=== PATIENT | male | born 1990 | race Caucasian/White ===

== ENCOUNTER 2022-01-04 18:51 | Emergency (ER) | payer SELFPAY ==
[~2022-01-04] VITALS: Ht 177.8 cm; Wt 77.0 kg
--- NOTE | 2022-01-04 19:29 | ED Head Injury ---
General Chief Complaint: Foreign Body Stated Complaint: FOREIGN BODY IN HEAD Nursing Triage Note: Pt reports he was fishing and got a fish hook stuck in the left side of his head. Pt is wearing a hat and was unable to get hook out. No bleeding noted. Source: patient Exam Limitations: no limitations History of Present Illness Date Seen by Provider: Jan 04, 2022 Time Seen by Provider: 19:00 Initial Comments Patient is a 31-year-old male with fishhook embedded into his baseball cap. Patient was casting when he was impaled by a 3 prong fishing hook. No attempts were made to remove the fishing hook prior to ED arrival. There is no bleeding noted. Tetanus is up-to-date. Allergies and Home Medications Allergies Coded Allergies: Penicillins (Verified Allergy, Unknown, 01/04/22) Patient Home Medication List Home Medication List Reviewed: Yes Review of Systems Review of Systems Constitutional: see HPI Eyes: See HPI Ears, Nose, Mouth, Throat: see HPI Respiratory: see HPI Cardiovascular: see HPI Genitourinary: see HPI Musculoskeletal: see HPI Skin: see HPI Psychiatric/Neurological: See HPI Endocrine: See HPI Hematologic/Lymphatic: See HPI All Other Systems Reviewed Negative Unless Noted: Yes Past Lnkskqo-Qrofuc-Cvuxeg Hx Patient Social History Tobacco Use?: Yes Tobacco type used: Cigarettes Smoking Status: Current Everyday Smoker Use of E-Cig and/or Vaping dev: No Substance use?: No Alcohol Use?: No Pt feels they are or have been: No Immunizations Up To Date Influenza Vaccine Up-to-Date: No; Not Current First/Initial COVID19 Vaccinat: denies Physical Exam Vital Signs Vital Signs - First Documented 01/04/22 18:55 Temp 36.8 Pulse 71 Resp 20 B/P (MAP) 139/78 (98) Pulse Ox 96 O2 Delivery Room Air Capillary Refill : Less Than 3 Seconds Height, Weight, BMI Height: '" Weight: lbs. oz. kg; 24.00 BMI Method: General Appearance: no apparent distress HEENT: other (3-prong fishing hook with single prong embedded in the patient's hair in pateint's braid an scalp) Progress/Results/Core Measures Results/Orders My Orders Orders - JASMINE MORLEY DO Sulfamethoxazole/Trimet Ds Tab (Bactrim (01/04/22 19:30) Vital Signs/I&O 01/04/22 18:55 Temp 36.8 Pulse 71 Resp 20 B/P (MAP) 139/78 (98) Pulse Ox 96 O2 Delivery Room Air Blood Pressure Mean: 98 Departure Communication (Admissions) Fishing hook was cut to facilitate removal. After the fishing hook was cut, the remaining prong fell out of his hair. Antibiotics were given. Impression Primary Impression: Fishing hook foreign body Disposition: HOME, SELF-CARE Condition: Stable Departure-Patient Inst. Decision time for Depature: 19:32 Referrals: NO,LOCAL PHYSICIAN (PCP/Family) Primary Care Physician Patient Instructions: Foreign Body in Skin Add. Discharge Instructions: Please fill antibiotics and take as directed. Return to the ED if signs of infection All discharge instructions reviewed with patient and/or family. Voiced und erstanding. Scripts Sulfamethoxazole/Trimethoprim (Bactrim Ds Tablet) 800 Mg-160 Mg Tablet 1 EACH PO BID, #10 TAB Prov: JASMINE MORLEY DO 01/04/22 JASMINE MORLEY DO Jan 04, 2022 19:29
[2022-01-04] MEDS ORDERED: TRIM/SULFAMETH 160/800 (SEPTRA DS) TAB PO ONE (19:30)
[2022-01-04] MEDS ORDERED: SULF-221 PO (19:33)
[2022-01-04 19:36] VITALS: BP 139/78
== END 2022-01-04 19:36 | disposition home or self-care (01) ==
LOC: ER FS 18:53
DX: S00.05XA Superficial foreign body of scalp, initial encounter (principal); F17.210 Nicotine dependence, cigarettes, uncomplicated; Z28.310 Unvaccinated for COVID-19; W45.8XXA Other foreign body or object entering through skin, initial encounter
CPT/HCPCS: 99285